=== PATIENT | female | born 1965 | race Caucasian/White ===

== ENCOUNTER 2019-03-23 11:04 | Observation (INO) | payer OTHER ==
[2019-03-23] MEDS ORDERED: IOPAMIDOL (ISOVUE-300) 100 ML BTL ONE (11:37)
--- NOTE | 2019-03-23 12:33 | EDPHY ---
H & P Stated Complaint: umbilical area redness and tenderness x 3 days Time Seen by Provider: 03/23/19 11:12 HPI/ROS: CHIEF COMPLAINT: Umbilical redness and tenderness HISTORY OF PRESENT ILLNESS: 53-year-old female presents emergency department reporting 3 days of gradually worsening umbilical pain, pressure, and now erythema around the a umbilicus on the abdominal wall. Patient has a robotic assisted laparoscopic hysterectomy performed 8 years ago in [facility]. Following that procedure, she developed similar symptoms of pain and erythema and had a presumed small stitch abscess, by her history. She has otherwise been well until 3 days ago. No nausea or vomiting. No fevers or chills. Pain is worse with movement, using the abdominal wall, sitting up, and walking around. No diarrhea, or urinary complaints. Patient has been taking ciprofloxacin for the last 3 days. She started this on her own. REVIEW OF SYSTEMS: A comprehensive 10 system review of systems was reviewed and is otherwise negative aside from elements mentioned in the history of present illness and medical decision making. PAST MEDICAL HISTORY: Hysterectomy, CVA, kidney stones SOCIAL HISTORY: Here with her family. VITAL SIGNS Reviewed by me. GENERAL: Well-developed, well-nourished, resting comfortably in no respiratory distress. HEENT: Atraumatic. Eyes: No icterus, no injection. Mouth: moist mucous membranes. No erythema or lesions. Neck: supple with no adenopathy. LUNGS: Clear to auscultation bilaterally, no wheezes, rhonchi or rales. CARDIAC: Regular rate and rhythm, no rubs, murmurs or gallops. ABDOMEN: Soft, 3-4 cm faint erythema surrounding the umbilicus. Slightly warm to the touch. No fluctuance. No drainage noted from the umbilicus. No mass or abscess or pustule visualized in the umbilicus itself. Area is slightly tender. No guarding or rebound. BACK: No CVA tenderness. EXTREMITIES: No trauma. No edema. Range of motion is normal throughout. NEURO: Alert and oriented, grossly nonfocal. SKIN: Warm and dry, no rash. PSYCHIATRIC: Normal mentation, no agitation. 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 tonsils. kidney stones. Hysterectomy. - Social History Smoking Status: Never smoked Constitutional: Initial Vital Signs Temperature (C) 36.6 C 03/23/19 11:11 Heart Rate 75 03/23/19 11:11 Respiratory Rate 16 03/23/19 11:11 Blood Pressure 148/78 H 03/23/19 11:11 O2 Sat (%) 95 03/23/19 11:11 O2 Delivery Mode Room Air Allergies/Adverse Reactions: Sulfa (Sulfonamide Antibiotics) Allergy (Severe, Verified 03/23/19 19:03) Swelling/neck,face,throat Penicillins Allergy (Mild, Verified 03/23/19 19:03) Rash Home Medications: Medication Instructions Recorded Aspirin EC [Aspirin EC 81 mg (*)] 81 mg PO HS 07/18/15 Levothyroxine [Synthroid 50 mcg 50 mcg PO DAILY06 07/18/15 (*)] SIMVASTATIN 5 mg PO HS 07/18/15 Verapamil [Calan 40MG (*)] 40 mg PO DAILY 07/18/15 Acetaminophen [Tylenol 325mg (*)] 650 mg PO Q4H PRN tab 03/24/19 Cephalexin [Keflex (*)] 500 mg PO Q6H 3 Days #12 cap 03/24/19 Ibuprofen [Motrin (*)] 600 mg PO QID tab 03/24/19 Medical Decision Making ED Course/Re-evaluation: 53-year-old female presents to the emergency department with periumbilical erythema, slight warmth, and tenderness. CT scan was ordered to evaluate for umbilical hernia, deep space abscess. CT scan does demonstrate a small umbilical hernia as well as a 15 mm x 15 mm fluid collection and some stranding in the soft tissue underneath the umbilicus. Patient has a normal white count, normal chemistries. Course was discussed with Dr. Ernestina Fang. Patient will be admitted to the [facility] for operative care this afternoon of her umbilical hernia as well as drainage of the abscess. She received 1 g of ceftriaxone. I did question her regarding her penicillin allergy. Patient says she simply was told that she should not take penicillin. Her mother is in the room and reports some type of a reaction when she was 3 but is unclear as to the details. Last p.o. Intake was at 10:00 a.m. Today. Patient will be transferred by POV to the [facility] for definitive management. Differential Diagnosis: Differential diagnoses for the patient's symptom complex was considered including but not limited to umbilical cellulitis, abdominal wall cellulitis, deep space abscess, abdominal wall hernia, umbilical hernia, stitch abscess. Consult/Admit Bed Type: Dr. Ernestina Fang, [facility] surg - Data Points Medications Given: Discontinued Medications Hydrocodone Bitart/Acetaminophen ([place] 5/325) 1 - 2 tab PO Q4HRS PRN PRN Reason: Pain, Moderate Able to Take PO Stop: 04/02/19 16:10 Last Admin: 03/23/19 18:30 Dose: 1 tab Bupivacaine HCl (Sensorcaine 0.25% Sdv) Confirm Administered Dose 30 ml .ROUTE .STK-MED ONE Stop: 03/23/19 15:58 Last Admin: 03/23/19 17:22 Dose: Not Given Bupivacaine HCl (Sensorcaine 0.5% Vial) Confirm Administered Dose 30 ml .ROUTE .STK-MED ONE Stop: 03/23/19 16:08 Last Admin: 03/23/19 16:00 Dose: 30 ml Ceftriaxone Sodium/Dextrose (Rocephin 1 Gm (Premix)) 50 mls @ 100 mls/hr IV EDNOW ONE PRN Reason: Protocol Stop: 03/23/19 14:21 Last Admin: 03/23/19 14:04 Dose: 50 mls Ceftriaxone Sodium/Dextrose (Rocephin 1 Gm (Premix)) 50 mls @ 100 mls/hr IV DAILY MARYELLEN PRN Reason: Protocol Stop: 04/23/19 08:59 Last Admin: 03/24/19 09:29 Dose: 50 mls Potassium Chloride/Dextrose/Sod Cl (D5w 1/2 Ns W/ 20 Kcl/L) 1,000 mls @ 50 mls/ hr IV CONT MARYELLEN Stop: 09/19/19 16:14 Last Admin: 03/23/19 20:11 Dose: 1,000 mls Ibuprofen (Motrin) 600 mg PO QID MARYELLEN Stop: 09/19/19 20:59 Last Admin: 03/24/19 17:01 Dose: 600 mg Ondansetron HCl (Zofran Odt) 4 mg PO Q4HRS PRN PRN Reason: Nausea/Vomiting, Use 1st Stop: 09/19/19 16:10 Last Admin: 03/23/19 18:30 Dose: 4 mg Point of Care Test Results: CBC CBC Collection Date 03/23/19 CBC Collection Time 11:50 WBC 8.21 RBC 4.96 HGB 14.9 HCT 44 PLT 282 Neut # 5.5 Neut 67.1 LYMPH # 1.9 LYMPH 23.1 MCV 88.7 Chemistry 03/23/19 11:58 POC Sodium 141 mEq/L mEq/L (135-145) POC Potassium 3.8 mEq/L mEq/L (3.3-5.0) POC Chloride 102.0 mEq/L mEq/L (97-110) POC Total CO2 27 mEq/L mEq/L (22-31) POC BUN 12 mg/dL mg/dL (7-23) POC Creatinine 1.0 mg/dL mg/dL (0.6-1.0) POC Glucose 91 mg/dL mg/dL (70-100) POC Calcium 9.3 mg/dL mg/dL (8.5-10.4) Departure - Departure Disposition: [facility] Inpatient Acute Clinical Impression: Umbilical hernia Qualifiers: Obstruction and gangrene presence: with obstruction but without gangrene Qualified Code(s): K42.0 - Umbilical hernia with obstruction, without gangrene Cellulitis Qualifiers: Site of cellulitis: trunk Site of cellulitis of trunk: umbilicus Qualified Code (s): L03.316 - Cellulitis of umbilicus Condition: Good
[2019-03-23] MEDS ORDERED: BUPIVACAINE 0.25% 30 ML SDV ONE (15:57)
[2019-03-23] MEDS ORDERED: BUPIVACAINE 0.5% 30 ML SDV ONE (16:07)
--- NOTE | 2019-03-23 16:09 | GHP ---
[f rep st] HISTORY AND PHYSICAL CHIEF COMPLAINT: Umbilical hernia. HISTORY OF PRESENT ILLNESS: The patient is a 53-year-old woman who had a robotic hysterectomy 8 years ago in [place]. She did have a stitch abscess and cellulitis following that procedure. She was doing well until 3 days ago when she started developing periumbilical pain, pressure, and erythema. She had a CT scan that showed a 1.5 cm abscess and a periumbilical hernia. She presented to Urgent Care. She denies obstructive symptoms, fevers, chills, nausea, vomiting. PAST MEDICAL HISTORY: Kidney stones, CVA, hypothyroid, hyperlipidemia, hypertension. PAST SURGICAL HISTORY: Hysterectomy. SOCIAL HISTORY: No tobacco use. ALLERGIES: Penicillin causes a rash, sulfa. MEDICATIONS: Verapamil, simvastatin, levothyroxine, aspirin. REVIEW OF SYSTEMS: Per HPI. PHYSICAL EXAMINATION: VITAL SIGNS: 37, 75, 130/79, 16, 96% on room air. GENERAL: Pleasant woman sitting up on gurney. HEENT: Normocephalic. No gross hearing deficits. Mucous membranes moist. Pupils equal and round. No scleral icterus. Mucous membranes moist. LUNGS: Clear to auscultation bilaterally. No increased work of breathing. CARDIAC: Regular rate. No peripheral edema. ABDOMEN: Bowel sounds present. She is soft. She has mild erythema around her abdominal wall. MUSCULOSKELETAL: Normal nails. NEURO: Grossly intact. PSYCH: Mood and affect normal. LABORATORY DATA: Results reviewed. I personally reviewed the results of her CT scan. IMPRESSION AND PLAN: This is a 53-year-old woman with umbilical hernia and abscess. Proceed to the operating room to drain the abscess and repair the umbilical hernia. Risks and benefits described. /[id number]/MODL MTDD
[2019-03-23] MEDS ORDERED: ONDANSETRON DISINTEGRATING 4 MG TAB PO PRN (16:11)
[2019-03-23] MEDS ORDERED: HYDROCODONE/APAP 5/325 TAB PO PRN (16:11)
[2019-03-23] MEDS ORDERED: ACETAMINOPHEN 325 MG TAB PO PRN (16:11)
[2019-03-23] MEDS ORDERED: ONDANSETRON 4 MG/2 ML VIAL IVP PRN ×2 (16:11→17:21)
[2019-03-23] MEDS ORDERED: D5W 1/2 NS W/ 20 KCl/L 1,000 ML IV SCH (16:15)
--- NOTE | 2019-03-23 16:26 | ASMTCMCOM ---
CM Note CM Note Notes: Chart reviewed for discharge planning purposes. 55 year old female admitted via ED with c/o umbilical pain . History of remote hysterectomy. Plan of care unclear. CM to follow for needs. Plan: TBD Date Signed: 03/23/2019 04:25 PM Electronically Signed By:Fernanda High RN
--- NOTE | 2019-03-23 16:29 | PDANEPAE ---
ANE History of Present Illness 53 year with infected umbilicus hernia ANE Past Medical History - Pulmonary History Hx Oxygen in Use at Home: No Hx Sleep Apnea: No - Neurologic History Hx Cerebrovascular Accident: Yes ANE Review of Systems Review of systems is: negative Review of Systems: ANE Patient History - Allergies Allergies/Adverse Reactions: Penicillins Allergy (Verified 03/23/19 11:16) Rash Sulfa (Sulfonamide Antibiotics) Allergy (Verified 03/23/19 11:16) - Home Medications Home medications: home medication list seen and reviewed Home Medications: Aspirin 81mg (OTC) 07/18/15 [Last Taken Unknown] Levothyroxine Sodium 07/18/15 [Last Taken Unknown] Simvastatin 07/18/15 [Last Taken Unknown] Verapamil 07/18/15 [Last Taken Unknown] - Anes Hx Anes Hx: no prior problems - Smoking Hx Smoking Status: Never smoked ANE Labs/Vital Signs - Vital Signs Blood Pressure: 150/76 Heart Rate: 69 Respiratory Rate: 16 O2 Sat (%): 96 Height: 158.75 cm Weight: 72.575 kg ANE Physical Exam - Airway Neck exam: FROM Mallampati Score: Class 2 Mouth exam: normal dental/mouth exam - Pulmonary Pulmonary: no respiratory distress, clear to auscultation - Cardiovascular Cardiovascular: regular rate and rhythym - ASA Status ASA Status: II (Limited mouth opening 3-4 cm 2nd to previous jaw surgery)
[2019-03-23] MEDS ORDERED: PROPOFOL 200 MG/20 ML VIAL ONE (16:35)
[2019-03-23] MEDS ORDERED: fentaNYL 100 MCG/2 ML INJ ONE ×2 (16:35→17:33)
[2019-03-23] MEDS ORDERED: PROMETHAZINE HCL 25 MG/ML INJ IVP PRN (17:21)
[2019-03-23] MEDS ORDERED: NALOXONE HCL 0.4 MG/ML INJ IVP PRN (17:21)
[2019-03-23] MEDS ORDERED: fentaNYL 100 MCG/2 ML INJ IVP PRN (17:21)
--- NOTE | 2019-03-23 17:23 | POSTANESTH ---
Post Anesthetic Evaluation Cardiovascular Status: Normal, Stable Respiratory Status: Normal, Stable Level of Consciousness/Mental Status: Can Participate in Eval Pain Control: Adequate, Prn Tx Ordered Nausea/Vomiting Control: Adequate, Prn Tx Ordered Complications Possibly Related to Anesthesia: None Noted
--- NOTE | 2019-03-23 18:43 | POSTOPPROG ---
Post Op Note Date of Operation: 03/23/19 Surgeon: Ernestina Fang Anesthesiologist: warm Anesthesia: GET(General Endotracheal) Pre-op Diagnosis: umbilical hernia and abscess Post-op Diagnosis: same Indication: 53 yo with cellulitus on abdomen and abscess and hernia Procedure: umbilical hernia repair and evacuation of abscess Findings: purulent fluid Inf/Abcess present in the surg proc area at time of surgery?: Yes Depth: Deep Incisional (Fascial) EBL: Minimal Specimen(s): micro and path
[2019-03-23 18:53] LABS: PLATELET COUNT 251 10^3/uL (150-400)
[2019-03-23] MEDS: IBUPROFEN 600 MG TAB PO SCH (22:19)
[2019-03-24] MEDS: IBUPROFEN 600 MG TAB PO SCH ×3 (04:59→17:01)
--- NOTE | 2019-03-24 13:51 | SOAPPROG ---
BALJINDER Progress Note Assessment/Plan: Assessment: POD #1 s/p open umbilical hernia repair and drainage of abscess Change packing 2x per week No heavy lifting pushing or pulling more than 15 lbs for 2 weeks S: Dizzy but better O: Lying in bed No erythema around umbilicus CTAB RRR Plan: 03/24/19 13:48 Objective: Vital Signs Temp Pulse Resp BP Pulse Ox 36.8 C 81 14 117/59 L 95 03/24/19 12:00 03/24/19 12:00 03/24/19 12:00 03/24/19 12:00 03/24/19 12:00 Microbiology 03/23/19 16:55 Gram Stain - Final Other - Aspirate Laboratory Results 03/23/19 18:43 03/23/19 03/24/19 03/25/19 05:59 05:59 05:59 Intake Total 2245 Output Total 0 Balance 2245 ICD10 Worksheet Patient Problems: Problems Problem Status Onset Umbilical hernia Acute - ICD10 Problem Qualifiers (1) Umbilical hernia Qualifiers: Obstruction and gangrene presence: with obstruction but without gangrene Qualified Code(s): K42.0 - Umbilical hernia with obstruction, without gangrene
--- NOTE | 2019-03-24 14:09 | ASDISCHSUM ---
Discharge Information Plan Status:Home with No Needs Medically Cleared to Leave:03/24/2019 Discharge Date:03/24/2019 CM D/C Disposition:Home, Routine, Self-Care ADT D/C Disposition:Home, Routine, Self-Care Projected Discharge Date:03/24/2019 Transportation at D/C:Family Discharge Delay Reason: Follow-Up Date:03/24/2019 Discharge Slot: Final Diagnosis:umbilical hernia Placement Information Patient Contact Information Contact Name:MANUEL Relationship: Address:[address] City:[place] Phone: State/Zip Code:[place] [address] Email: Financial Information Financial Class:Software 2000 Primary Plan Desc:[facility] Primary Plan Number:[id number] Secondary Plan Desc: Secondary Plan Number: Assessment Information [facility] CM Progress Note CM Note CM Note Notes: Chart reviewed for discharge planning purposes. 55 year old female admitted via ED with c/o umbilical pain . History of remote hysterectomy. Plan of care unclear. CM to follow for needs. Plan: TBD Date Signed: 03/23/2019 04:25 PM Electronically Signed By:Fernanda High RN Case Management Discharge Plan Note Case Management Discharge Discharge Order Complete? Answers: Yes Patient to Obtain Answers: via Family Medications Transportation Arranged Answers: Family/Friends Transport will Pick (Date 03/24/2019 12:00 AM & Time) Family Notified Answers: Yes Notes: at bedside Discharge Comments Notes: CM spoke with pt and at the bedside. Pt had umbilical hernia repair yesterday and feels comfortable discharging independently today. No therapies ordered. No CM needs noted at this time. Date Signed: 03/24/2019 02:07 PM Electronically Signed By:Farhana Ortega RN LACE LACE Length of stay for Answers: Less than 1 day current admission Acuity / Level of Answers: No Care: Did the patient have an inpatient admission? Comorbidities - select Answers: Other Notes: hernia all that apply # of Emergency department Answers: 1-2 visits in the last 6 months Score: 2 Date Signed: 03/24/2019 02:08 PM Electronically Signed By:Farhana Ortega RN Intervention Information
[2019-03-24 15:34] VITALS: BP 112/56
--- NOTE | 2019-03-26 07:43 | GDS ---
[f rep st] DISCHARGE SUMMARY ADMITTING DIAGNOSIS: Abdomen abscess, umbilical hernia. SECONDARY DIAGNOSES: Nephrolithiasis, history of cerebrovascular accident, hypothyroidism, hyperlipi demia, and hypertension. REASON FOR ADMISSION: A 53-year-old woman who presented to the emergency room complaining of celluli tis in her abdomen as well as periumbilical pain. She was admitted for further workup, surgical inte rvention, pain control, and observation. HOSPITAL COURSE: In the emergency room, she had a CT scan performed, which showed a 1.5 cm abscess a nd the periumbilical hernia. She was taken to the operating room by Dr. Ernestina Fang on 03/23/2019 fo r incision and drainage of the abscess as well as open umbilical hernia repair. At the time of disch arge, cultures are still pending but show 4+ gram-positive cocci. On postoperative day #1, her pain is well controlled with oral pain medications, she was tolerating regular diet, ambulating independen tly, and she was ready for discharge home. CONDITION ON DISCHARGE: Discharged home in stable condition. Pain controlled with oral pain medicat ion, tolerating regular diet, and ambulating independently. DISCHARGE MEDICATIONS: Home with new prescriptions for Keflex x3 days. May take ibuprofen, Tylenol as needed for pain. DISCHARGE INSTRUCTIONS: She will avoid heavy lifting, pushing, or pulling greater than 15 pounds for 2 weeks. She will present to the clinic twice weekly for packing changes. Continue taking antibiot ics as directed. Call with worsening symptoms, questions, or concerns. /[id number]/MODL
--- NOTE | 2019-03-28 15:53 | GOP ---
[f rep st] OPERATIVE REPORT DATE OF OPERATION: 03/23/2019 SURGEON: Ernestina Fang MD ANESTHESIA: General. ANESTHESIOLOGIST: Kevyn Aiken MD PREOPERATIVE DIAGNOSIS: Umbilical hernia with associated abscess. POSTOPERATIVE DIAGNOSIS: Umbilical hernia with associated abscess. PROCEDURE PERFORMED: Umbilical hernia repair and evacuation of abscess. FINDINGS: Purulent fluid. SPECIMENS: Microbiology and Pathology. ESTIMATED BLOOD LOSS: Minimal. INDICATIONS: The patient is a 53-year-old woman who had a previous hysterectomy and a stitch abscess . She presented to Urgent Care with cellulitis of her abdomen and had a CT scan obtained, which show ed abscess and umbilical hernia. DESCRIPTION OF PROCEDURE: The patient was brought into the operating room, placed supine on the tabl e, and general anesthesia was administered. Her abdomen was prepped and draped in the usual sterile fashion. I infiltrated the area with 0.5% Marcaine prior to making incisions. I made an incision be neath her umbilicus. I dissected down through the skin and I immediately encountered an abscess. I took a sample for culture. I completely evacuated the abscess. I came around the umbilical stalk wi th a hemostat and divided it from the fascia. I was then able to identify the hernia. I reduced a s mall amount of fat that was incarcerated, but not causing any signs of obstruction. I performed copi ous irrigation. I sutured the defect closed with 0 PDS. Since the wound was infected, I then packed it with Hydrofera Blue and a dressing. She was awakened in the operating room, extubated, and trans ferred to PACU in stable condition. /[id number]/MODL
== END 2019-03-24 17:22 | disposition home or self-care (01) ==
LOC: CED 11:04 → UNDOADMOB 13:33 → CEDHOLD 13:33 → CED 15:00 → F3N 15:30 → CEDHOLD 15:31 → F3N 15:31 → FSGY 16:06
PROVIDERS: ADMIT Surgery; ATTEND Surgery
PROC: 0WQF0ZZ Repair Abdominal Wall, Open Approach (ICD-10-PCS; principal; 2019-03-23 17:00)
PROC: 0H97XZZ Drainage of Abdomen Skin, External Approach (ICD-10-PCS; principal; 2019-03-23 17:00)
DX: L03.316 Cellulitis of umbilicus (principal); K42.0 Umbilical hernia with obstruction, without gangrene; E03.9 Hypothyroidism, unspecified; E78.5 Hyperlipidemia, unspecified; I10 Essential (primary) hypertension; Z86.73 Personal history of transient ischemic attack (TIA), and cerebral infarction without residual deficits; Z88.0 Allergy status to penicillin
CPT/HCPCS: 10060; 49585; 74177; 99285; G0378; 80048-ER; 85025-QW-ER; J0696; J2704; J3010; Q9967